=== PATIENT | female | born 1975 | race African-American/Black ===

== ENCOUNTER 2019-12-17 12:07 | Inpatient (IN) | payer OTHER ==
[~2019-12-17] VITALS: Ht 170.2 cm; Wt 88.0 kg
--- NOTE | 2019-12-17 12:25 | NUR ---
Patient BIBA BLS from [facility], transferred to bed 2. RN evaluating patient at bedside.
[2019-12-17 12:34] VITALS: BP 118/79
--- NOTE | 2019-12-17 12:40 | NUR ---
44 YR OLD TRACH F BIB [facility] FROM [facility] FOR LT AXILLARY ABSCESS PMH: CHRONIC RESPIRATORY FAILURE, TRACHEOSTOMY, G -TUBE, HEMIPGLEGIA, ENCEPHALOPAHTY, EPILEPSY, SACARAL PRESSURE ULCER BUTTOCK/LT HEEL
--- NOTE | 2019-12-17 13:33 | NUR ---
FERNANDO CHAMBERS TALK TO NURSING TRANSPORT AIDE AT [facility] FOR MORE INFORMATION
[2019-12-17 14:26] LABS: APPEARANCE,URINE CLEAR (CLEAR); BILIRUBIN,URINE NEGATIVE (NEGATIVE); BLOOD, URINE NEGATIVE (NEGATIVE); COLOR,URINE YELLOW (YELLOW); LEUKOCYTE ESTERASE ,URINE NEGATIVE (NEGATIVE); NITRITE, URINE NEGATIVE (NEGATIVE); PH,URINE 5.5 (5.0-9.0); UGLUCOSE NEGATIVE (NEGATIVE)
[2019-12-17 14:31] LABS: BASOPHILS % (AUTO) 0.2 % (0.0-2.0); EOSINOPHILS # (AUTO) 0.5 K/uL (0-0.4); LYMPHOCYTES # (AUTO) 1.4 K/uL (2.5-16.5); LYMPHOCYTES % (AUTO) 8.5 % (20.5-51.1); MEAN CORPUSCULAR HEMOGLOBIN 29 pg (27-31); MEAN CORPUSCULAR HGB CONC 32 g/dL (33-37); MEAN CORPUSCULAR VOLUME 89.3 fL (80-94); MONOCYTES # (AUTO) 1.4 K/uL (0.8-1.0); MONOCYTES % (AUTO) 8.4 % (1.7-9.3); NEUTROPHILS # (AUTO) 13.6 K/uL (1.8-7.7); NEUTROPHILS % (AUTO) 79.9 % (42.2-75.2); PLATELET COUNT (AUTO) 379 K/uL (140-450); RED BLOOD CELL COUNT(AUTO) 2.79 MIL/uL (4.20-5.40); RED CELL DISTRIBUTION WIDTH 16.2 % (11.6-13.7)
--- NOTE | 2019-12-17 14:35 | NUR ---
URINE SPECIMEN COLLECTED VIA STRAIGHT CATH DONE BY STUDENTS W/ INSTRUCTOR AT BEDSIDE. SPECIMEN SEND TO THE LAB INCLUDING LT AXILLARY WOUND CULTURE
[2019-12-17 14:43] LABS: PROTHROMBIN TIME 10.4 secs (10.8-13.4)
[2019-12-17 14:51] LABS: CARBON DIOXIDE 32.9 mmol/L (21-32); POTASSIUM 4.9 mmol/L (3.5-5.1)
[2019-12-17 14:52] LABS: CREATININE 0.8 mg/dL (0.6-1.3)
[2019-12-17 14:57] LABS: TOTAL BILIRUBIN 0.3 mg/dL (0.0-1.0)
[2019-12-17] MEDS ORDERED: PIPERACILLIN/TAZOBACTAM 4.5 GM in DEXTROSE 5% 100 ML IV ONE (15:00)
[2019-12-17] MEDS ORDERED: NACL 0.9% 1,000 ML IV ONE (15:00)
[2019-12-17 15:04] LABS: ALBUMIN 3.2 g/dL (3.4-5.0)
[2019-12-17] MEDS ORDERED: ONDANSETRON 4 MG/2 ML VIAL IVP PRN (15:35)
[2019-12-17] MEDS ORDERED: HYDROcodone/APAP 5/325 MG 1 TAB TAB PO PRN (15:35)
[2019-12-17] MEDS ORDERED: MORPHINE SULFATE 2 MG/ML SYR IVP PRN (15:35)
[2019-12-17] MEDS ORDERED: LORazepam 2 MG/ML VIAL IVP PRN (15:35)
[2019-12-17] MEDS ORDERED: MORPHINE SULFATE 4 MG/ML SYR IVP PRN (15:35)
[2019-12-17] MEDS ORDERED: VANCOMYCIN 1,000 MG VIAL ONE ×2 (15:53→16:04)
[2019-12-17] MEDS ORDERED: PIPERACILLIN/TAZOBACTAM 4.5 GM VIAL IV ONE (16:04)
--- NOTE | 2019-12-17 16:44 | NUR ---
Pt transferred to Tele via 124B WITH JOSE J ROBLES.
[2019-12-17 16:56] VITALS: BP 96/66
--- NOTE | 2019-12-17 16:56 | NUR ---
RECEIVED PT. FROM ER NURSE TIMOTHY. PT. AWAKE AND INTUBATED, ON 2L O2. BEDBOUND, FLACCID EXTREMITIES AND NONVERBAL. IV ON THE LEFT FOREARM ON KVO. VITAL SIGNS STABLE. CELLULITIS ON BILATERAL ARMPITS. GTUBE IN PLACE AND INTACT. CHRISTOPHER VALVE REPLACED ON GTUBE. NO SIGNS OF DISTRESS. WILL CONTINUE TO MONITOR.
--- NOTE | 2019-12-17 17:01 | NUR ---
Patient will be admitted to care of Dr Melchor. Admited to tele room 124b. Belongings list completed. Report to given to JOSE J Lindsey.
--- NOTE | 2019-12-17 17:15 | NUR ---
PT. CHANGED AND CLEANED. SKIN CHECKS DONE BY BOTH RN AND MEDICAL LAB TECH INSTRUCTOR. PT. TOLERATED WELL. WILL CONTINUE TO MONITOR.
[2019-12-17] MEDS: NACL 0.9% 1,000 ML IV SCH (17:30)
[2019-12-17] MEDS ORDERED: VANCOMYCIN 1,000 MG VIAL PO SCH (18:00)
--- NOTE | 2019-12-17 18:05 | NUR ---
SUCTIONED PT. AND PT. TOLERATED WELL. PT. NOT IN DISTRESS. WILL CONTINUE TO MONITOR.
--- NOTE | 2019-12-17 18:15 | NUR ---
MRSA AND INFLUENZA CULTURE OBTAINED ON BOTH NARES. PT. TOLERATED AND NOT IN DISTRESS. WILL CONTINUE TO MONITOR.
[2019-12-17] MEDS: IPRATROPIUM 0.02% 0.5 MG/2.5 ML NEBU INH SCH (19:03)
--- NOTE | 2019-12-17 19:05 | NUR ---
RECEIVED PT TRACH WITH PORTEX SIZE 7 AND SECURED WITH TRACH TIE. PT PLACED ON COOL AEROSOL 30% ON 6LMP WITH SP02 OF 94%. NO APPARENT RESPIRATORY DISTRESS NOTED AT THIS TIME. TRACH CARE DONE. BVM AT BEDSIDE. AIRWAY PATENT. WILL CONTINUE TO MONITOR PT.
--- NOTE | 2019-12-17 19:15 | NUR ---
ENDORSED PT AT BEDSIDE TO BEAM DYER OPERATOR NURSE FOR CONTINUITY OF CARE. PT AWAKE AND IN BED. NO SIGNS OF DISTRESS NOTED. TELE MONITOR ATTACHED. SAFETY MEASURES IN PLACE.
--- NOTE | 2019-12-17 19:16 | NUR ---
RECEIVED BEDSIDE REPORT FROM DAY SHIFT NURSE. PT. AWAKE AND T PIECE TRACH ON 2L O2. BEDBOUND, FLACCID EXTREMITIES AND NONVERBAL. IV ON THE LFA, 22G, PATENT, INTACT, AND ASYMPTOMATIC. GTUBE IN PLACE AND INTACT. NO SIGNS OF DISTRESS. BED IN LOW POSITION, CALL LIGHT WITHIN REACH. WILL CONTINUE TO MONITOR.
[2019-12-17 20:00] VITALS: BP 101/65
[2019-12-17] MEDS ORDERED: PIPERACILLIN/TAZOBACTAM 3.375 GM VIAL IV ONE (20:33)
[2019-12-17] MEDS ORDERED: DEXTROSE 5% IV SCH (21:00)
[2019-12-17] MEDS ORDERED: PIPERACILLIN IV SCH (21:00)
[2019-12-17] MEDS ORDERED: TAZOBACTAM IV SCH (21:00)
--- NOTE | 2019-12-17 21:05 | NUR ---
GIVEN ZOSYN MD ORDERED. PT TOLERATED WELL.
[2019-12-17] MEDS ORDERED: PIPERACILLIN/TAZOBACTAM 3.375 GM in DEXTROSE 5% 50 ML IV SCH (22:00)
--- NOTE | 2019-12-17 22:22 | NUR ---
PT HAD BM, CHANGED PT WITH FICTION WRITER, REMA.
[2019-12-18] VITALS (7 sets, daily range): BP systolic 100–154; BP diastolic 64–87
--- NOTE | 2019-12-18 00:05 | NUR ---
VS CHECKED, WITHIN PT'S BASELINE, WILL CONTINUE TO MONITOR.
--- NOTE | 2019-12-18 02:25 | NUR ---
PT SLEEPING IN BED COMFORTABLY. NO ACUTE DISTRESS NOTED.
[2019-12-18] MEDS: IPRATROPIUM 0.02% 0.5 MG/2.5 ML NEBU INH SCH ×4 (03:13→19:59)
[2019-12-18] MEDS: NACL 0.9% 1,000 ML IV SCH ×2 (03:16→17:25)
--- NOTE | 2019-12-18 04:08 | NUR ---
VS CHECKED, WITHIN PT'S BASELINE. WILL CONTINUE TO MONITOR.
[2019-12-18] MEDS ORDERED: PIPERACILLIN/TAZOBACTAM 3.375 GM VIAL IV ONE (05:01)
[2019-12-18] MEDS: PIPERACILLIN/TAZOBACTAM 3.375 GM in DEXTROSE 5% 50 ML IV SCH ×3 (05:05→17:53)
--- NOTE | 2019-12-18 05:06 | NUR ---
GIVEN ZOSYN MD ORDERED. PT TOLERATED WELL. WILL CONTINUE TO MONITOR.
--- NOTE | 2019-12-18 05:47 | NUR ---
PT SLEEPING IN BED COMFORTABLY. NO ACUTE DISTRESS NOTED. BED IN LOW POSITION.
[2019-12-18] MEDS ORDERED: CRUSHER, PILL MC ONE (07:39)
[2019-12-18 10:53] LABS: ANION GAP 11.2 (8-16); BASOPHILS % (AUTO) 0.3 % (0.0-2.0); CARBON DIOXIDE 31.2 mmol/L (21-32); CREATININE 0.7 mg/dL (0.6-1.3); EOSINOPHILS # (AUTO) 0.6 K/uL (0-0.4); EOSINOPHILS % (AUTO) 4.2 % (0.0-4.0); HEMATOCRIT 24.4 % (36-48); HEMOGLOBIN 7.9 g/dL (12.0-16.0); LYMPHOCYTES # (AUTO) 1.5 K/uL (2.5-16.5); LYMPHOCYTES % (AUTO) 10.8 % (20.5-51.1); MEAN CORPUSCULAR HEMOGLOBIN 29 pg (27-31); MEAN CORPUSCULAR HGB CONC 32 g/dL (33-37); MEAN CORPUSCULAR VOLUME 89.3 fL (80-94); MONOCYTES % (AUTO) 7.2 % (1.7-9.3); NEUTROPHILS # (AUTO) 10.9 K/uL (1.8-7.7); NEUTROPHILS % (AUTO) 77.5 % (42.2-75.2); PLATELET COUNT (AUTO) 341 K/uL (140-450); POTASSIUM 4.4 mmol/L (3.5-5.1); RED BLOOD CELL COUNT(AUTO) 2.73 MIL/uL (4.20-5.40); RED CELL DISTRIBUTION WIDTH 16.3 % (11.6-13.7); TOTAL BILIRUBIN 0.3 mg/dL (0.0-1.0)
--- NOTE | 2019-12-18 11:00 | NUR ---
MEDITECH SYSTEM DOWN AND NURSES NOTES ARE ON HARD COPY CHART, PT IS STABLE, PT IS ON 2LITER OXYGEN, WILL CONTINUE TO MONITOR.
--- NOTE | 2019-12-18 11:46 | NUR ---
Beading Machine Operator Note: Basic Screen: Yes High Risk DC Screen [place]: SARBJIT Coronel Relationship: MOTHER Pre-Admission Living Arrangements: SNF Prior ADL Total/Dependent Current Home Health Name/Tel: N/A Current DME/02 Name/Tel: BEDBOUND Current Hospice Name/Tel: N/A Current Dialysis Name/Tel: N/A Healthcare Decision Maker: Next of Kin Advance Directive No Physician Orders for Life Sustaining Treatment Form No Discipline: Case Mgt/Social Svcs Tentative Discharge Plan/Destination: SNF/ECF Will require assistance post discharge: No Referred to Bowl Attendant: No Tentative Discharge Plan Summary: Patient is a 44-year-old female admitted for cellulitis/pneumonia. Patient has PMHX of trach, flaccid, paralysis, nonverbal, respiratory failure, g-tube, and hemiplegia. Patient was admitted from [facility]. SW contacted Thao who stated that patient is prison and currently on a bed hold. Per Thao, patient is non-ambulatory and is not alert/oriented at baseline. Tentative discharge plan is for patient to return to [facility]. No further needs identified. Signature: ROCÍO Uribe Date: Dec 18, 2019 Time: 11:41
--- NOTE | 2019-12-18 13:00 | NUR ---
SUCTIONED PT, PT HAS MODERATE AMOUNT OF THIN SECRETIONS, PT REQUIRES ORALLY SUCTIONING, PT IS STABLE, TOLERATING G-TUBE FEEDING, WILL CONTINUE TO MONITOR.
--- NOTE | 2019-12-18 14:42 | NUR ---
12/18/19 RD INITIAL ASSESSMENT COMPLETED PLEASE REFER TO NUTRITION ASSESSMENT UNDER CARE ACTIVITY FOR ESTIMATED NUTRITIONAL NEEDS. 1. RECOMMEND JEVITY 1.2 @ 65 ML/HR & 1 PROSOURCE -THIS WILL PROVIDE 1932 KCALS AND 102 GMS OF PROTEIN. THIS IS MEETING 91% OF PTS KCAL NEEDS AND 95% OF PTS PRO NEEDS. 2. FREE WATER FLUSH OF [address] TO FOLLOW-UP 2-3 DAYS, HIGH RISK SUKHJINDER FLORES [address]
--- NOTE | 2019-12-18 15:22 | NUR ---
PATIENT HAS BEEN SCREENED AND CATEGORIZED HIGH NUTRITION RISK. PATIENT WILL BE SEEN WITHIN 1-2 DAYS OF ADMISSION. 12/18/19-12/19/[address]
--- NOTE | 2019-12-18 16:23 | NUR ---
DC PLANNIN YRS OLD FEMALE PATIENT WAS AD[place] [facility] [place] DX OF CELLULITIS VS PNA PT HAS A HX OF ANOXIC BRAIN INJURY ,HAS G-TUBE ,TRACHEOSTOMY. PT HAS A WOUND ON AXILLARY ABSCESS AND LEUKOCYTOSIS . CXRAY SHOWED PNEUMONIA . ADMINISTER VANCO AND ZOSYN , BLOOD ,URINE AND WOUND CULTURE PENDING. CONSULTED WITH DR JOSE BOWDEN AND DR RODRIGUEZ SURGEON. DC PLAN TO GO BACK [place] [facility] WHEN STABLE CM TO FOLLOW. Addendum: 12/19/19 at 1145 by Kaylah Gilliland CM DC PLANNING: PER RT NOTED PT IS PLACED ON TRACH TO VENT. WBC INCREASED 19.5 ,SEEN BY DR JOSE COFFEY IV X DREW, CM TO FOLLOW Addendum: 12/20/19 at 1102 by Kaylah Gilliland CM DC PLANNING: FOR INDIUM SCAN CAN NOT BE DONE AT [facility] BECAUSE OF THE SMALL CAMERA WE HAVE AND THE SCAN TAKES 2 DAYS AND [place]NA[place] [facility] [place] [facility] SPOKE WITH RENATO THE CM STATED PT CAN BE TRANSFERED TO [facility] CONTRACTED FACILITY . CALLED DR PATEL STATED HOLD THE TRANSFER NOW AND HE WILL TALK TO DR JOSE BOWDEN AND WILL DECIDE. CM TO FOLLOW Addendum: 12/21/19 at 1610 by Kaylah Gilliland CM DC PLANNING: PT HAS A DC ORDER TO GO BACK [place] [facility] , FAXED ALL THE PAPER WORK [place] [facility] , SPOKE WITH MIRIAM REVIEWING THE PAPER AND WILL CALL BACK FOR THE BED NUMBER. CALLED RENATO AT [facility] PROVIDE THE AUTH FOR TRANSPORTATION [id number] ARRANGED TRANSPORT WITH [facility] PL[facility] IT WILL CALL NOTIFIED NEMA CHARGE NURSE Addendum: 12/21/19 at 1645 by Kaylah Gilliland CM DC PLANING RECEIVED A CALL FROM CLIFT[facility] AT [facility] [place] IS [place] ISO BED , WILL CALL BACK WHEN THEY HAVE ISO BED CHARGE NURSE TO FOLLOW AT NIGHT Addendum: 12/24/19 at 1446 by Kaylah Gilliland CM DC PLANNING: CALLED [facility] SPOKE WITH MIRIAM STILL NO ISO BED AVAILABLE. CLARIFIED WITH MIRIAM THAT PT IS 7 DAY BED HOLD AND THE 7 DAY IS OVER. PER MIRIAM SHE IS ONE OF CORRECTIONAL SUPERVISOR PATIENT AND WILL TAKE HER BACK ONCE THEY HAVE AN ISO BED. CALLED [facility] SPOKE WITH RENATO NOTIFIED HER THAT [facility] IF [facility] TO D/C PT TO [facility] FAXED TO [facility] CM TO FOLLOW. Addendum: 12/25/19 at 1100 by Kaylah Gilliland CM DC PLANNING CALLED [facility] [phone] SPOKE WITH [place], PT CAN GO TO ROOM 27B ARRANGED TRANSPORT WITH [facility] BLS PROVIDED THE AUTH NUMBER GAUGE MAKER APPRENTICE TIME 2 PM NOTIFIED HARISH GAINES RN
--- NOTE | 2019-12-18 17:15 | NUR ---
GAVE PT TYLENOL FOR FEVER OF 102 AND ICE PACKS TO THE AXILLAS, NO COVERS ON THE PT, COOLING MEASURES IN PLACE.
[2019-12-18] MEDS: ACETAMINOPHEN 325 MG TAB PO PRN ×2 (17:25→22:36)
--- NOTE | 2019-12-18 18:15 | NUR ---
RE-CHECKED PT TEMPERATURE 103, CALLED DR PATEL OFFICE AND LEFT A MESSAGE FOR A CALL BACK. COOLING MEASURES IN PLACE FOR THE PT, WILL CONTINUE TO MONITOR PT.
--- NOTE | 2019-12-18 19:15 | NUR ---
GAVE REPORT TO NIGHT NURSE FOR CONTINUITY OF CARE.
--- NOTE | 2019-12-18 19:16 | NUR ---
RECEIVED BEDSIDE REPORT FROM AM SHIFT NURSE. PATIENT HAS INCREASED WORK OF BREATHING WITH COPIOUS AMOUNT OF SECRETIONS. TRACH TO T-PIECE ON 12LPM OXYGEN. RT NOTIFIED AT THIS TIME. IV ACCESS ON LEFT FOREARM 22 GAUGE, PATENT, INTACT AND INFUSING WELL. G-TUBE IN PLACE, PATENT AND INTACT WITH ONGOING FEEDING. COOLING MEASURES IN PLACE. BED IN LOW, SAFETY MEASURES IN PLACE. CALL LIGHT WITHIN PATIENT REACH. BOARD UPDATED. WILL CONTINUE TO MONITOR PATIENT.
--- NOTE | 2019-12-18 20:05 | NUR ---
PT HAS INCREASED WORK OF BREATHING. PAGENikolas SILVER
--- NOTE | 2019-12-18 20:19 | NUR ---
MD SILVER CALLED BACK AND GAVE VERBAL ORDER TO PLACE PT ON VENT WITH SETTINGS AC 14,400,+5,100% AND TITRATE FIO2 TO KEEP SPO2 92 AND ABOVE. ORDER HAS BEEN READ BACK AND CONFIRMED.
--- NOTE | 2019-12-18 20:30 | NUR ---
PT PLACED ON VENTILATOR WITH CHARTED SETTINGS. RN TR AWARE AND IN ROOM. CHARGE NURSE GEN AWARE WELL. VENT IS CONNECTED TO RED OUTLET. ALARMS AUDIBLE. AMBU BAG AT BEDSIDE. WILL CONTINUE TO MONITOR.
--- NOTE | 2019-12-18 20:45 | NUR ---
PRN ATIVAN GIVEN AT THIS TIME PER RT REQUEST. PATIENT HAD ANXIETY DUE TO VENT. WILL CONTINUE TO MONITOR PATIENT.
--- NOTE | 2019-12-18 22:36 | NUR ---
PATIENT CHANGED DUE TO VOIDING. PATIENT VERY WARM TO TOUCH. TEMPERATURE CHECKED ORALLY WITH TEMP OF 103.1. COOLING MEASURES RENDERED AND PRN TYLENOL ADMINISTERED.
--- NOTE | 2019-12-18 23:50 | NUR ---
TEMP RECHECKED. PATIENT TEMP STILL AT 103.1 ORALLY. PRN ACETAMINOPHEN SUPPOSITORY ADMINISTERED AND COOLING MEASURES CHANGED. WILL CONTINUE TO MONITOR PATIENT.
[2019-12-18] MEDS: ACETAMINOPHEN 650 MG SUPP RC PRN (23:57)
[2019-12-19] VITALS (9 sets, daily range): BP systolic 109–138; BP diastolic 77–97
[2019-12-19] MEDS: PIPERACILLIN/TAZOBACTAM 3.375 GM in DEXTROSE 5% 50 ML IV SCH ×5 (00:23→23:21)
[2019-12-19] MEDS: IPRATROPIUM 0.02% 0.5 MG/2.5 ML NEBU INH SCH ×4 (00:49→18:56)
--- NOTE | 2019-12-19 01:00 | NUR ---
TEMPERATURE REASSESSED AT THIS TIME. PATIENT NOTED WITH ORAL TEMP OF 101.8. COOLING MEASURES STILL IN PLACE. WILL CONTINUE TO MONITOR PATIENT.
--- NOTE | 2019-12-19 02:12 | NUR ---
PATIENT IS TOLERATING VENT WELL. MODERATE AMOUNT OF SECRETIONS SUCTIONED AT THIS TIME. NO DISTRESS NOTED. WILL CONTINUE TO MONITOR PATIENT.
[2019-12-19] MEDS: ACETAMINOPHEN 325 MG TAB PO PRN (02:47)
--- NOTE | 2019-12-19 02:51 | NUR ---
PRN ACETAMINOPHEN GIVEN FOR ORAL TEMP OF 101.9. COOLING MEASURES STILL IN PLACE. WILL CONTINUE TO MONITOR PATIENT.
--- NOTE | 2019-12-19 04:14 | NUR ---
REASSESSED PATIENT WITH ORAL TEMPERATURE OF 100.4. COOLING MEASURES STILL IN PLACE. WILL CONTINUE TO MONITOR PATIENT.
--- NOTE | 2019-12-19 05:20 | NUR ---
PATIENT TEMP REASSESSED WITH TEMP OF 99.9. COOLING MEASURES REPLACED. WILL CONTINUE TO MONITOR PATIENT.
[2019-12-19 06:01] LABS: HEMATOCRIT 24.9 % (36-48); HEMOGLOBIN 7.9 g/dL (12.0-16.0); MEAN CORPUSCULAR HEMOGLOBIN 28 pg (27-31); MEAN CORPUSCULAR HGB CONC 32 g/dL (33-37); MEAN CORPUSCULAR VOLUME 88.7 fL (80-94); PLATELET COUNT (AUTO) 356 K/uL (140-450); RED BLOOD CELL COUNT(AUTO) 2.81 MIL/uL (4.20-5.40); RED CELL DISTRIBUTION WIDTH 15.8 % (11.6-13.7)
--- NOTE | 2019-12-19 06:10 | NUR ---
PATIENT NOTED WITH HIGH BLOOD PRESSURE OF 157/108 . BP RECHECKED ON BOTH ARMS. PATIENT HAS HIGH HEART RATE OF 110 WITH RR OF 26. PATIENT IS CRYING AND MOANING. PRN MORPHINE GIVEN AT THIS TIME FOR SEVERE PAIN.
[2019-12-19 06:28] LABS: ANION GAP 13.6 (8-16); CARBON DIOXIDE 28.7 mmol/L (21-32); CREATININE 0.7 mg/dL (0.6-1.3); POTASSIUM 4.3 mmol/L (3.5-5.1); TOTAL BILIRUBIN 0.4 mg/dL (0.0-1.0)
--- NOTE | 2019-12-19 06:39 | NUR ---
PATIENT IN STABLE CONDITION. ORAL TEMPERATURE OF 98.3. CALL LIGHT PLACED WITHIN PATIENT REACH. WILL ENDORSE TO AM SHIFT NURSE FOR CONTINUITY OF CARE.
[2019-12-19 06:51] LABS: WHITE BLOOD COUNT (AUTO) 19.5 K/uL (4.8-10.8)
[2019-12-19 06:59] LABS: LYMPHOCYTES % (MANUAL) 9 % (20-46); MONOCYTES % (MANUAL) 4 % (5-12)
--- NOTE | 2019-12-19 07:13 | NUR ---
RECEIVE REPORT FROM NIGHT NURSE, PT ON VENT, PT IS STABLE, LFA 22G RUNNING NORMAL SALINE AT 75 ML, G-TUBE IN PLACE RUNNING JEVITY AT 65ML/H WITH WATER FLUSH OF 105ML/H Q4H, COOLING MEASURES IN PLACE, SAFETY MEASURES IN PLACE, UPDATED WHITEBOARD, WILL CONTINUE TO MONITOR.
--- NOTE | 2019-12-19 07:15 | NUR ---
rec'd pt on carescape vent settings ac 16 vt 400 peep 5 fio2 30% alarms on and audible and ambu bag at hob and vent is plugged into red outlet, i\l tx given with atrovent 0.5mg with no adverser reaction post tx b\s are coarse bilaterally, sxn pt small amt of yellow secretions, pt is trach with portex 7 and pt is sleeping
[2019-12-19] MEDS: ACETAMINOPHEN 650 MG SUPP RC PRN (08:03)
--- NOTE | 2019-12-19 08:03 | NUR ---
GAVE PT TYLENOL SUPPOSITORY FOR TEMP OF 100.0, COOLING MEASURES IN PLACE, PT EDUCATION GIVEN, PT TOLERATED WELL, PT IS STABLE ON VENTILATOR, SAFETY MEASURES IN PLACE, CALL LIGHT WITHIN REACH.
[2019-12-19] MEDS: NACL 0.9% 1,000 ML IV SCH ×3 (08:04→23:22)
--- NOTE | 2019-12-19 09:10 | NUR ---
SCREEN FOR LOW LORETTA SCALE AT RISK, CONTINUE TO FOLLOW PRESSURE ULCER PREVENTION INTERVENTIONS. -TURN AND REPOSITION PATIENT Q 2H -ASSESS AND MONITOR SKIN CONDITION DURING POSITION CHANGE -OFFLOAD BILATERAL HEELS BY PLACING PILLOWS UNDER CALVES AT ALL TIMES, UNLESS OTHERWISE CONTRAINDICATED -PRESSURE REDISTRIBUTION BY PLACING PILLOWS AND OFFLOADING SACRALCOCCYX -KEEP SKIN CLEAN AND DRY AT ALL TIMES.
--- NOTE | 2019-12-19 11:00 | NUR ---
SUCTIONED PT OF MODERATE YELLOW SUCTION PT TOLERATED WELL, PT ON VENTILATOR, PT IS STABLE, SAFETY MEASURES IN PLACE WILL CONTINUE TO MONITOR.
--- NOTE | 2019-12-19 12:19 | NUR ---
ADMINISTERED PT ORDERED MEDICATION, PT TOLERATED WELL, PT IS STABLE, SAFETY MEASURES IN PLACE.
[2019-12-19] MEDS ORDERED: hydrALAZINE 10 MG TAB GT PRN (15:00)
--- NOTE | 2019-12-19 15:34 | NUR ---
PT RESTING IN BED, NO SIGNS OF DISTRESS NOTED, WILL CONTINUE TO MONITOR.
--- NOTE | 2019-12-19 18:58 | NUR ---
RECEIVED PT FROM DAY SHIFT ON AC 16,400,+5,30%. VENT PLUGGED INTO RED OUTLET. BMV AT BEDSIDE. ALARMS AUDIBLE AT WORKING. TRACH IS SECURED AND INTACT. PT RECEVEIVED ATROVENT. SX WHITE SECRETION ORALLY. WILL CONT. TO MONITOR
--- NOTE | 2019-12-19 19:16 | NUR ---
PT IS STABLE, GAVE REPORT TO NIGHT NURSE FOR CONTINUITY OF CARE
--- NOTE | 2019-12-19 19:18 | NUR ---
RECEIVED BEDSIDE REPORT FROM AM SHIFT NURSE. PATIENT IS LYING IN BED, AWAKE. PATIENT IS ON TRACH TO MECHANICAL VENTILATOR. NO DISTRESS NOTED. IV ACCESS ON LEFT FOREARM 22 GAUGE. PATENT, INTACT AND INFUSING WELL. G-TUBE IN PLACE, PATENT AND INTACT WITH ON GOING FEEDING. SKIN IS INTACT. HEEL PROTECTORS NOTED ON BOTH HEELS. PATIENT IS NOTED WITH COOLING MEASURES IN PLACE. BED IN LOW, SAFETY MEASURES IN PLACE. INITIAL ASSESSMENT DONE. BOARD UPDATED. CALL LIGHT PLACED WITHIN PATIENT REACH. WILL CONTINUE TO MONITOR PATIENT.
--- NOTE | 2019-12-19 19:20 | NUR ---
CALLED [facility] AT [phone] TO FOLLOW UP ON PT'S NUCLEAR MEDICINE WBC STUDY, LEFT A MESSAGE FOR RADIOLOGY TO CALL [facility] REGARDING THE POSSIBLITY OF CONDUCTING THE STUDY AT [facility].
[2019-12-19] MEDS: LABETALOL 200 MG TAB GT SCH (20:47)
[2019-12-19] MEDS: SENNA 8.6 MG TAB GT SCH (20:47)
[2019-12-19] MEDS: FAMOTIDINE 20 MG TAB GT SCH (20:47)
[2019-12-19] MEDS: levETIRAcetam 100 MG/ML ORASYR GT SCH (20:48)
--- NOTE | 2019-12-19 22:15 | NUR ---
ROUNDS DONE. VISIBLE CHEST RISE AND FALL NOTED. MOUTH SUCTIONED WITH MODERATE AMOUNT OF CLEAR SECRETIONS. WILL CONTINUE TO MONITOR PATIENT.
[2019-12-20] VITALS (7 sets, daily range): BP systolic 100–123; BP diastolic 66–89
--- NOTE | 2019-12-20 00:15 | NUR ---
VITALS TAKEN AT THIS TIME. NO SOB OR DISTRESS NOTED. PATIENT TOLERATING VENT WELL. MOUTH SUCTIONED AND CLEANED WITH CLEAR SECRETIONS. WILL CONTINUE TO MONITOR PATIENT.
[2019-12-20] MEDS: IPRATROPIUM 0.02% 0.5 MG/2.5 ML NEBU INH SCH ×4 (01:10→19:21)
--- NOTE | 2019-12-20 01:22 | NUR ---
DUE MEDICATION PER DR ORDER ADMINISTERED, PT TOLERATED WELL, NO DISTRESS NOTED, CALL LIGHT WITHIN REACH, WILL CONTINUE TO MONITOR. Addendum: 12/21/19 at 0248 by Jessica Bhatt RN WRONG DATE
--- NOTE | 2019-12-20 02:29 | NUR ---
ROUNDS DONE. PATIENT SUCTIONED AT THIS TIME. NO DISTRESS NOTED. WILL CONTINUE TO MONITOR PATIENT.
--- NOTE | 2019-12-20 04:30 | NUR ---
VITALS TAKEN AT THIS TIME. NO SOB OR DISTRESS NOTED. PATIENT SUCTIONED AT THIS TIME WITH MODERATE AMOUNTS OF CLEAR SECRETIONS. WILL CONTINUE TO MONITOR PATIENT.
--- NOTE | 2019-12-20 04:55 | NUR ---
pt remains on documented setting. vent plugged into red outlet. bmv at bedside. alarms audible and working. will cont to monitor
[2019-12-20] MEDS: PIPERACILLIN/TAZOBACTAM 3.375 GM in DEXTROSE 5% 50 ML IV SCH ×3 (05:13→20:33)
--- NOTE | 2019-12-20 05:18 | NUR ---
CONTINUOUS FEEDING, WATER AND FEEDING TUBES CHANGED AT THIS TIME. PATIENT TOLERATING FEEDING WELL.
--- NOTE | 2019-12-20 06:42 | NUR ---
PATIENT IN STABLE CONDITION. CALL LIGHT WITHIN PATIENT REACH. WILL ENDORSE TO AM SHIFT NURSE FOR CONTINUITY OF CARE.
[2019-12-20 06:54] LABS: BASOPHILS % (AUTO) 0.2 % (0.0-2.0); EOSINOPHILS # (AUTO) 0.5 K/uL (0-0.4); EOSINOPHILS % (AUTO) 2.9 % (0.0-4.0); LYMPHOCYTES # (AUTO) 1.2 K/uL (2.5-16.5); LYMPHOCYTES % (AUTO) 7.4 % (20.5-51.1); MEAN CORPUSCULAR HEMOGLOBIN 29 pg (27-31); MEAN CORPUSCULAR HGB CONC 32 g/dL (33-37); MEAN CORPUSCULAR VOLUME 89.4 fL (80-94); MONOCYTES # (AUTO) 0.8 K/uL (0.8-1.0); MONOCYTES % (AUTO) 5.4 % (1.7-9.3); NEUTROPHILS # (AUTO) 13.1 K/uL (1.8-7.7); NEUTROPHILS % (AUTO) 84.1 % (42.2-75.2); PLATELET COUNT (AUTO) 330 K/uL (140-450); RED BLOOD CELL COUNT(AUTO) 2.46 MIL/uL (4.20-5.40); RED CELL DISTRIBUTION WIDTH 15.8 % (11.6-13.7); WHITE BLOOD COUNT (AUTO) 15.6 K/uL (4.8-10.8)
--- NOTE | 2019-12-20 07:00 | NUR ---
LATE ENTRY RECIVED PT ON VENT WITH SETTINGS CHARTED BREATH SOUNDS PRESENT BILAT DIMINISHED TRACH SITE SECURE VENT PLUGGED INTO RED OUTLET
--- NOTE | 2019-12-20 07:01 | NUR ---
RECEIVED REPORT FROM NIGHT NURSE, PT IS STABLE, TRACHED TO VENT, PT ASLEEP, PT HAS LFA 22G RUNNING NS AT 75 ML, UPDATE WHITE BOARD, SAFETY MEASURES IN PLACE, WILL CONTINUE TO MONITOR.
[2019-12-20 07:19] LABS: ALBUMIN 2.8 g/dL (3.4-5.0); ANION GAP 10.6 (8-16); CARBON DIOXIDE 29.8 mmol/L (21-32); CREATININE 0.6 mg/dL (0.6-1.3); POTASSIUM 4.4 mmol/L (3.5-5.1); TOTAL BILIRUBIN 0.2 mg/dL (0.0-1.0)
--- NOTE | 2019-12-20 08:58 | NUR ---
SPOKE WITH NUCLEAR MEDICINE. WE ARE UNABLE TO DO INDIUM SCAN AT THIS FACILITY WILL HAVE TO TRANSFER PT TO [place] FOR THE SCAN. WILL COORDINATE WITH CLOTHING ROOM SUPERVISOR TO ARRANGE TRANSPORTATION
[2019-12-20] MEDS ORDERED: MULTIVITAMIN/MINERALS 15 ML UDBTL GT SCH (09:00)
[2019-12-20] MEDS: LABETALOL 200 MG TAB GT SCH ×2 (09:00→20:40)
--- NOTE | 2019-12-20 09:07 | NUR ---
LEFT 2 MESSAGES TO PT MOTHER REQUESTING A CALL BACK, PT NEEDS CONSENT FORM SIGNED FOR BLOOD TRANSFUSION. WILL CONTACT DR PATEL OF INABILITY TO REACH PT PIT HAND.
[2019-12-20] MEDS: ASCORBIC ACID 500 MG/5 ML ORASYR GT SCH (09:27)
[2019-12-20] MEDS: MULTIVITAMIN/MINERALS 1 TAB GT SCH (09:28)
--- NOTE | 2019-12-20 09:28 | NUR ---
DR PATEL CALLED BACK, INFORMED DR PATEL PT'S MOTHER UNREACHABLE BY PHONE FOR BLOOD TRANSFUSION CONSENT, PT REQUIRES 2 MD SIGNATURE TO GET BLOOD TRANSFUSION, DR PATEL SAID IT WAS NOT AN EMERGENCY AND TO REPEAT CBC AT 10:30. WILL PUT ORDERS IN AND WILL CONTINUE TO MONITOR PT, PT IS CURRENTLY STABLE.
[2019-12-20] MEDS: levETIRAcetam 100 MG/ML ORASYR GT SCH ×2 (09:29→20:40)
[2019-12-20] MEDS: FAMOTIDINE 20 MG TAB GT SCH ×2 (09:29→20:41)
--- NOTE | 2019-12-20 09:36 | NUR ---
GAVE ORDERED MEDICATIONS THROUGH G-TUBE, EDUCATION GIVEN, PT TOLERATED WELL, PT RESTING IN BED, SO SIGNS OF DISTRESS NOTED, PT TRACHED TO VENTILATOR, WILL CONTINUE TO MONITOR.
--- NOTE | 2019-12-20 11:22 | NUR ---
PT RESTING IN BED, TRACHED TO VENT, PT IS STABLE, WILL CONTINUE TO MONITOR.
[2019-12-20 12:29] LABS: BASOPHILS % (AUTO) 0.2 % (0.0-2.0); EOSINOPHILS # (AUTO) 0.5 K/uL (0-0.4); EOSINOPHILS % (AUTO) 3.1 % (0.0-4.0); HEMATOCRIT 22.4 % (36-48); HEMOGLOBIN 7.2 g/dL (12.0-16.0); LYMPHOCYTES # (AUTO) 1.2 K/uL (2.5-16.5); LYMPHOCYTES % (AUTO) 7.6 % (20.5-51.1); MEAN CORPUSCULAR HEMOGLOBIN 29 pg (27-31); MEAN CORPUSCULAR HGB CONC 32 g/dL (33-37); MEAN CORPUSCULAR VOLUME 90.9 fL (80-94); MONOCYTES # (AUTO) 0.7 K/uL (0.8-1.0); MONOCYTES % (AUTO) 4.2 % (1.7-9.3); NEUTROPHILS # (AUTO) 13.6 K/uL (1.8-7.7); NEUTROPHILS % (AUTO) 84.9 % (42.2-75.2); PLATELET COUNT (AUTO) 350 K/uL (140-450); RED BLOOD CELL COUNT(AUTO) 2.47 MIL/uL (4.20-5.40); WHITE BLOOD COUNT (AUTO) 16.1 K/uL (4.8-10.8)
[2019-12-20] MEDS: MUPIROCIN CA NASAL 2% 1GM TUBE NS SCH (12:35)
[2019-12-20] MEDS: CHLORHEXADINE GLUC 2% CLOTH TP SCH (12:38)
--- NOTE | 2019-12-20 13:16 | NUR ---
12/20/19 RD FOLLOW UP COMPLETED PLEASE REFER TO NUTRITION ASSESSMENT UNDER CARE ACTIVITY FOR ESTIMATED NUTRITIONAL NEEDS. 1. CONTINUE JEVITY 1.2 @ 65 ML/HR & 1 PROSOURCE -THIS WILL PROVIDE 1932 KCAL AND 102 GMS OF PROTEIN. THIS IS MEETING 91% OF PTS KCAL NEEDS AND 95% OF PTS PRO NEEDS 2. CONTINUE FREE WATER FLUSH OF [address] TO FOLLOW-UP 2-3 DAYS, HIGH RISK SUKHJINDER FLORES RD
--- NOTE | 2019-12-20 14:16 | NUR ---
PT IS STABLE IN BED, NO SIGNS OF DISTRESS NOTED, PT IS RESTING, WILL CONTINUE TO MONITOR.
--- NOTE | 2019-12-20 16:24 | NUR ---
STARTED PT BLOOD TRANSFUSION, PT IS STABLE, NO SIGNS OF DISTRESS NOTED, WILL CONTINUE TO MONITOR.
--- NOTE | 2019-12-20 16:39 | NUR ---
RE-ASSESS PT'S VITAL SIGNS, TEMP 98.5, PULSE 83, RR 20, BP 156/90. THERE WAS AN INCREASE IN BLOOD PRESSURES FROM THE PRE-INFUSION VITALS OF BLOOD PRESSURE 111/77. STOPPED INFUSION AND NOTIFIED DR. SILVER ABOUT THE CHANGES, DR SILVER SAID TO CONTINUE WITH THE INFUSION, RE-STARTED THE INFUSION.
--- NOTE | 2019-12-20 17:57 | NUR ---
CONTINUED TO MONITOR PT ON VENT WIRH SETTINGS CHARTED BREATH SOUNDS PRESENT BILAT SXN PT WITH MIN TO MOD AMT OFF OFF WHITE SECS TRACH SITE SECURE AMBU BAG AT BEDSIDE VENT PLUGGED INTO RED OUTLET
[2019-12-20] MEDS: ALBUTEROL 0.083% 2.5 MG/3 ML NEBU INH PRN (19:21)
--- NOTE | 2019-12-20 19:25 | NUR ---
PT STABLE, BLOOD TRANSFUSION STILL INFUSING, GAVE REPORT TO NIGHT NURSE FOR CONTINUITY OF CARE.
--- NOTE | 2019-12-20 19:26 | NUR ---
RECEIVED BEDSIDE REPORT FROM DAY SHIFT NURSE ELIZABETH RN, PT STABLE, NO DISTRESS NOTED, IV TO L FA 22G PATENT INTACT, INFUSING BLOOD AT THIS MOMENT, PT ON TRACH TO VENT, NO SOB NOTED, G TUBE FEEDING IN PLACE, RESIDUAL 40ML, INITIAL ASSESSMENT DONE, ALL SAFETY PRECAUTION MET, CALL LIGHT WITHIN REACH, WILL CONTINUE TO MONITOR.
--- NOTE | 2019-12-20 20:00 | NUR ---
BLOOD TRANSFUSION COMPLETED, PT TOLERATED WELL, NO DISTRESS NOTED, CALL LIGHT WITHIN REACH, WILL CONTINUE TO MONITOR.
[2019-12-20] MEDS: SENNA 8.6 MG TAB GT SCH (20:40)
--- NOTE | 2019-12-20 20:44 | NUR ---
DUE MEDICATION GIVEN PER MD ORDER, PT TOLERATED WELL, NO DISTRESS NOTED, CALL LIGHT WITHIN REACH, WILL CONTINUE TO MONITOR.
--- NOTE | 2019-12-20 23:50 | NUR ---
PT SLEEPING, NO DISTRESS NOTED, CALL LIGHT WITHIN REACH, WILL CONTINUE TO MONITOR.
[2019-12-21] VITALS: BP 116/84
[2019-12-21] MEDS: ALBUTEROL 0.083% 2.5 MG/3 ML NEBU INH PRN (00:59)
[2019-12-21] MEDS: IPRATROPIUM 0.02% 0.5 MG/2.5 ML NEBU INH SCH ×4 (00:59→19:41)
[2019-12-21] MEDS: NACL 0.9% 1,000 ML IV SCH ×2 (01:22→12:04)
[2019-12-21] MEDS: LEVOFLOXACIN 750 MG/D5W PREMIX 150 ML IV SCH (01:22)
--- NOTE | 2019-12-21 01:22 | NUR ---
DUE MEDICATION PER DR ORDER ADMINISTERED, PT TOLERATED WELL, NO DISTRESS NOTED, CALL LIGHT WITHIN REACH, WILL CONTINUE TO MONITOR.
--- NOTE | 2019-12-21 03:11 | NUR ---
TUBE FEEDINGS CHANGED, PT TOLERATING FEEDING WELL, RESIDUAL 5ML, CALL LIGHT WITHIN REACH, WILL CONTINUE TO MONITOR.
[2019-12-21 04:00] VITALS: BP 128/96
--- NOTE | 2019-12-21 04:18 | NUR ---
PT RESTING, V/S TAKEN, WNL, CALL LIGHT WITHIN REACH, WILL CONTINUE TO MONITOR.
[2019-12-21 06:25] LABS: BASOPHILS % (AUTO) 0.3 % (0.0-2.0); EOSINOPHILS # (AUTO) 0.4 K/uL (0-0.4); HEMATOCRIT 25.2 % (36-48); HEMOGLOBIN 8.1 g/dL (12.0-16.0); LYMPHOCYTES # (AUTO) 1.4 K/uL (2.5-16.5); LYMPHOCYTES % (AUTO) 10.3 % (20.5-51.1); MEAN CORPUSCULAR HEMOGLOBIN 29 pg (27-31); MEAN CORPUSCULAR HGB CONC 32 g/dL (33-37); MEAN CORPUSCULAR VOLUME 91.2 fL (80-94); MONOCYTES # (AUTO) 0.7 K/uL (0.8-1.0); MONOCYTES % (AUTO) 4.6 % (1.7-9.3); NEUTROPHILS # (AUTO) 11.5 K/uL (1.8-7.7); NEUTROPHILS % (AUTO) 81.8 % (42.2-75.2); PLATELET COUNT (AUTO) 377 K/uL (140-450); RED BLOOD CELL COUNT(AUTO) 2.77 MIL/uL (4.20-5.40); RED CELL DISTRIBUTION WIDTH 15.6 % (11.6-13.7); WHITE BLOOD COUNT (AUTO) 14.1 K/uL (4.8-10.8)
[2019-12-21 07:08] LABS: ALBUMIN 2.8 g/dL (3.4-5.0); ANION GAP 15.2 (8-16); CARBON DIOXIDE 28.7 mmol/L (21-32); CREATININE 0.6 mg/dL (0.6-1.3); POTASSIUM 4.9 mmol/L (3.5-5.1); TOTAL BILIRUBIN 0.2 mg/dL (0.0-1.0)
--- NOTE | 2019-12-21 07:12 | NUR ---
ENDORSED PT TO DAY SHIFT NURSE MIGUEL RN, PT STABLE, NO DISTRESS NOTED, CALL LIGHT WITHIN REACH.
--- NOTE | 2019-12-21 07:28 | NUR ---
RECEIVED BEDSIDE REPORT FROM PM RN PT AWAKE IN BED PT A&OX1. PT APHASIC. PT TRACH TO VENT. PT HAS GTUBE IN PLACE. HEAD OF BED ELEVATED ABOVE 30 DEGREES. ALL SAFETY MEASURES ARE IN PLACE CALL LIGHT WITHIN REACH. WILL CONTINUE TO MONITOR.
[2019-12-21 08:01] VITALS: BP 114/90
[2019-12-21] MEDS: MULTIVITAMIN/MINERALS 1 TAB GT SCH (08:20)
[2019-12-21] MEDS: ASCORBIC ACID 500 MG/5 ML ORASYR GT SCH (08:21)
[2019-12-21] MEDS: LABETALOL 200 MG TAB GT SCH ×2 (08:21→20:56)
[2019-12-21] MEDS: levETIRAcetam 100 MG/ML ORASYR GT SCH ×2 (08:21→20:54)
[2019-12-21] MEDS: FAMOTIDINE 20 MG TAB GT SCH ×2 (08:22→20:57)
--- NOTE | 2019-12-21 08:45 | NUR ---
MORNING MEDICATIONS ADMINISTERED VIA GTUBE. GTUBE RESIDUAL LESS THAN 10ML GTUBE FLUSHED AND PATENT. NO TROUBLE INFUSING RT AT BEDSIDE PERFORMING BREATHING TREATMENT. HEAD OF BED ELEVATED ABOVE 30 DEGREES. ALL SAFETY MEASURES ARE IN PLACE. WILL CONTINUE TO MONITOR.
[2019-12-21] MEDS ORDERED: WATER STERILE 10 ML MC ONE (09:35)
[2019-12-21] MEDS: COLISTIMETHATE SODIUM 150 MG VIAL IH SCH ×2 (09:43→21:09)
--- NOTE | 2019-12-21 10:30 | NUR ---
PROVIDED BED BATH FOR PATIENT WITH CHG WIPES. PROVIDED ORAL CARE. ASHLEY CARE AND REPOSITIONED PT. PT TOLERATED CLEANING AND REPOSITIONING. ALL SAFETY MEASURES ARE IN PLACE WILL CONTINUE TO MONITOR. TRACH TO VENT GTUBE INFUSING HEAD OF BED ELEVATED ABOVE 30 DEGREES.
[2019-12-21] MEDS: CHLORHEXADINE GLUC 2% CLOTH TP SCH (12:04)
[2019-12-21] MEDS: MUPIROCIN CA NASAL 2% 1GM TUBE NS SCH (12:04)
[2019-12-21 12:05] VITALS: BP 131/90
--- NOTE | 2019-12-21 12:15 | NUR ---
FREQUENT ROUNDING ON PT PT APPEARS STABLE AND IN NO APPARENT DISTRESS. ALL SAFETY MEASURES ARE IN PLACE WILL CONTINUE TO MONITOR.
--- NOTE | 2019-12-21 12:18 | NUR ---
STABLE GOOD CHEST RISE ANGELINA PTARHEAL SUCTION FOR LARGE FROTHY PALE WHITE SECRETIONS AIRWAY PATENT
--- NOTE | 2019-12-21 13:19 | NUR ---
NO EVIDENCE OF PULMONARY DISTRESS NOTED GOOD CHEST RISE AND AERATION THROUGHOUT BILATERAL LUNG MALONEY AIRWAY PATENT
--- NOTE | 2019-12-21 14:50 | NUR ---
FREQUENT ROUNDING ON PT PT APPEARS STABLE AND IN NO APPARENT DISTRESS. ALL SAFETY MEASURES ARE IN PLACE. CALL LIGHT IS WITHIN REACH. WILL CONTINUE TO MONITOR.
--- NOTE | 2019-12-21 16:11 | NUR ---
NO RESPIRATORY DISTRESS NOTED EQUAL CHEST RISE DEEP TRACHEAL SUCTION FOR LARGE THIN YELLOW SECRETIONS AIRWAY PATENT
--- NOTE | 2019-12-21 16:45 | NUR ---
FREQUENT ROUNDING ON PT PT APPEARS STABLE AND IN NO APPARENT DISTRESS. ALL SAFETY MEASURES ARE IN PLACE WILL CONTINUE TO MONITOR. WILL CONTINUE TO MONITOR, ORAL CARE PROVIDED REPOSITIONED PATIENT.
[2019-12-21 16:46] VITALS: BP 117/79
--- NOTE | 2019-12-21 17:10 | NUR ---
RESTING COMFORTABLE NO SOB NOTED DEEP TRACHEAL SUCTION FOR MODERATE THIN YELLOW SECRETIONS AIRWAY PATENT
--- NOTE | 2019-12-21 18:12 | NUR ---
FREQUENT ROUNDING ON PT. ORAL SUCTIONING PROVIDED FOR ORAL SECRETIONS. ALL SAFETY MEASURES ARE IN PLACE CALL LIGHT WITHIN REACH WILL CONTINUE TO MONITOR.
--- NOTE | 2019-12-21 19:11 | NUR ---
ENDORSED PT AT BEDSIDE TO PM RN PT AWAKE IN BED. PT TRACH TO VENT. ON TELE MONITORING. CONTINOUS 02 MONITORING AT BEDSIDE. GTUBE INFUSING. HEAD OF BED ELEVATED ABOVE 30 DEGREES. CALL LIGHT WITHIN REACH. ALL SAFETY MEASURES ARE IN PLACE BED ALARM ON. IVF INFUSING AT 30ML/HR.
--- NOTE | 2019-12-21 19:11 | NUR ---
RECIEVED PT AWAKE , NON VERBAL , RESPONDING TO STIMULI BY BLINKING THE EYES . NID - ON TRACH TO VENT - [id number] 30 RATE 16 .ON O2 SAT MONITORING - 100% , NO SIGNS OF ACUTE DISTRESS NOTED AT THIS TIME , ON G TUBE FEEDING - WELL TOERATED . POC DISCUSSED BUT POOR UNDERSTANDING DUE TO MENTAL STATUS - CALL LIGHT MARIO OSMAN . ON SAFETY / FALL PRECAUTION PROTOCOL . WILL CONT. TO MONITOR.
[2019-12-21 20:00] VITALS: BP 138/93
[2019-12-21] MEDS: SENNA 8.6 MG TAB GT SCH (20:56)
--- NOTE | 2019-12-21 22:29 | NUR ---
MADE ROUNDS. NO SIGNS OF ACUTE DISTRESS NOTED AT THIS TIME . OFF LOAD PRESSURE AREAS . - ON GLOBAL PRESIDENT - BED ALARM ON - WILL CONT. TO MONITOR.
--- NOTE | 2019-12-21 23:24 | NUR ---
MADE ROUNDS , PROGRESSING EXCESSIVELY SECRETION ON THE MOUTH - CHECK THE FEEDING RESIDUE - 250CC - HOLD G TUBE FEEDING.
[2019-12-22] VITALS: BP 133/80
[2019-12-22] MEDS: LEVOFLOXACIN 750 MG/D5W PREMIX 150 ML IV SCH (00:40)
[2019-12-22] MEDS: IPRATROPIUM 0.02% 0.5 MG/2.5 ML NEBU INH SCH ×4 (01:13→19:13)
--- NOTE | 2019-12-22 01:33 | NUR ---
MADE ROUNDS , STILL W/ WATERY MUCOUS COMING OUT TO MOUTH BUT LESS IN AMOUT COMPARE IT WAS . O2 SAT 100 , PT RESTING COMFORTABLY - AUSCULTATE LUNGS - CLEAR SOUNDS.WILL CONT TO MONITOR. Addendum: 12/22/19 at 0138 by Amber Haile RN THE WORD WATERY MUCOUS COMING OUT TO MOUTH IS AN ERROR ENTRY , INSTEAD OF WATERY MUCOUS COMING OUT FROM THE MOUTH- JUDY
--- NOTE | 2019-12-22 01:35 | NUR ---
RE CHECK RESIDUE 20CC - RESUME FEEDING AT BEGINNING OF 10CC - AND WILL TITRATE ACCORDING TO RESIDUE .
--- NOTE | 2019-12-22 03:35 | NUR ---
FEEDING TOLERATED - RESIDUE 40CC.WILL CONT . TO MONITOR.
--- NOTE | 2019-12-22 03:39 | NUR ---
MADE ROUNDS , NO SIGNS OF ACUTE DISTRESS NOTED . O2 SAT WNL , OFF LOAD PRESSURE AREAS . SUCTION SECRETION .- WELL TOLERATED . WILL CONT./ TO MONITOR.
[2019-12-22 04:00] VITALS: BP 135/83
--- NOTE | 2019-12-22 06:00 | NUR ---
MADE ROUNDS , NO SIGNS OF DISTRESS NOTED .
[2019-12-22] MEDS ORDERED: WATER STERILE 10 ML MC ONE (07:23)
--- NOTE | 2019-12-22 07:26 | NUR ---
ENDORSED TO AM - PT - STABLE - O2 SAT WNL .AWAKE.
--- NOTE | 2019-12-22 07:26 | NUR ---
RECEIVED REPORT FROM ARMATURE TESTER NURSE. PATIENT LYING DOWN IN BED, RECEIVING A BREATHING TREATMENT FROM RT. NO DISTRESS NOTED. FLACC 0. RESPIRATIONS EVEN, UNLABORED, ON TRACH TO VENT. APHASIC, SKIN COLOR APPROPRIATE TO ETHNICITY, WARM TO TOUCH. SKIN INTACT. GTUBE INTACT, AND INFUSING FEEDING PER MD ORDERS. IV SITE INTACT, PATENT, AND INFUSING IVF PER MD ORDERS. REVIEWED PLAN OF CARE WITH PATIENT. UNABLE TO COMPREHEND. SAFETY MEASURES IN PLACE, CALL LIGHT WITHIN REACH. WILL CONTINUE OT MONITOR.
[2019-12-22] MEDS: COLISTIMETHATE SODIUM 150 MG VIAL IH SCH ×2 (07:40→19:14)
[2019-12-22 08:00] VITALS: BP 113/79
[2019-12-22] MEDS ORDERED: COLI150P4 IH (08:13)
[2019-12-22] MEDS ORDERED: LEVO750T51 PO (08:13)
[2019-12-22] MEDS: MULTIVITAMIN/MINERALS 1 TAB GT SCH (09:38)
[2019-12-22] MEDS: LABETALOL 200 MG TAB GT SCH ×2 (09:38→20:25)
[2019-12-22] MEDS: ASCORBIC ACID 500 MG/5 ML ORASYR GT SCH (09:39)
[2019-12-22] MEDS: levETIRAcetam 100 MG/ML ORASYR GT SCH ×2 (09:39→20:23)
[2019-12-22] MEDS: FAMOTIDINE 20 MG TAB GT SCH ×2 (09:39→20:23)
--- NOTE | 2019-12-22 09:57 | NUR ---
SCHEDULED MEDICATIONS DUE GIVEN. WILL CONTINUE TO MONITOR.
--- NOTE | 2019-12-22 11:30 | NUR ---
PERFORMED ORAL CARE. PATIENT TOLERATED WELL. WILL CONTINUE TO MONITOR.
--- NOTE | 2019-12-22 11:30 | NUR ---
12/22/19 RD FOLLOW UP COMPLETED PLEASE REFER TO NUTRITION PROGRESS NOTE UNDER CARE ACTIVITY FOR ESTIMATED NUTRITION NEEDS. RD RECOMMENDATIONS: 1. CONTINUE JEVITY 1.2 @ 65 ML/HR & 1 PACKET PROSOURCE DAILY -THIS WILL PROVIDE 1932 KCALS AND 102 GMS OF PROTEIN; SUFFICIENT TO MEET 100% OD PT'S DAILY ESTIMATED NUTRITIONAL NEEDS. 2. CONTINUE FREE WATER FLUSH OF [address] TO FOLLOW-UP 2-3 DAYS, HIGH RISK [place] MAK MBA, RD
--- NOTE | 2019-12-22 11:51 | NUR ---
CONTACTED JAQUELINE AT [facility], NO ISOLATION ROOM AVAILABLE FOR PT. AL MADE AWARE.
[2019-12-22 12:00] VITALS: BP 129/85
[2019-12-22] MEDS: MUPIROCIN CA NASAL 2% 1GM TUBE NS SCH (12:32)
[2019-12-22] MEDS: CHLORHEXADINE GLUC 2% CLOTH TP SCH (12:33)
[2019-12-22] MEDS: NACL 0.9% 1,000 ML IV SCH ×2 (12:42→20:41)
--- NOTE | 2019-12-22 13:00 | NUR ---
ASSISTED TELEVISION REPAIRER IN CLEANING AND REPOSITIONING PATIENT. WILL CONTINUE TO MONITOR.
[2019-12-22 16:00] VITALS: BP 152/85
--- NOTE | 2019-12-22 16:30 | NUR ---
ASSISTED CARDIAC EXERCISE PHYSIOLOGIST IN CLEANING AND REPOSITIONING PATIENT. CONDITION UNCHANGED. WILL CONTINUE TO MONITOR.
[2019-12-22] MEDS ORDERED: COLISTIMETHATE SODIUM 150 MG VIAL ONE (18:44)
--- NOTE | 2019-12-22 19:20 | NUR ---
GAVE REPORT TO SENIOR PROJECT MANAGER NURSE FOR CONTINUITY OF CARE. PATIENT IN STABLE CONDITION.
--- NOTE | 2019-12-22 19:20 | NUR ---
RECIEVED PT AWAKE , RESPONDING TO TOUCH , ON TRACH TO VENT , O2 SAT WNL , ON G TUBE FEEDING - TOLERATED . IV SITE INTACT AND PATENT . INCONTINENT - ON DIAPER . POC DISCUSSED BUT POOR UNDERSTANDING DUE TO MENTAL STATUS . ON SAFETY / FALL PRECAUTION PROTOCOL - BED ALARM ON . ON ASSISTANT TEACHING PROFESSOR . LOW LORETTA SCALE . WILL CONT. TO MONITOR .
--- NOTE | 2019-12-22 19:29 | NUR ---
RECEIVED PT FROM DAY ON AC 16,400,+5,30%. VENT PLUGGED INTO RED OUTLET. BMV HANGED ONTO VENTILATOR. TRACH IS SECURED WITH A TRACH TIE. PT REMAINS QUIET. WILL CONT TO MONITOR
[2019-12-22 20:00] VITALS: BP 113/83
[2019-12-22] MEDS: SENNA 8.6 MG TAB GT SCH (20:24)
--- NOTE | 2019-12-22 22:00 | NUR ---
MADE ROUNDS . NO S/S OF ACUTE DISTRESS NOTED AT THIS TIME , O2 SAT WNL .- ON CONFIGURATION MANAGEMENT ARCHITECT. ,WILL CONT. TO MONITOR.
--- NOTE | 2019-12-23 | NUR ---
MADE ROUNDS . NO S/S OF ACUTE DISTRESS NOTED AT THIS TIME - O2 SAT WNL. OFF LOAD PRESSURE AREAS . DIAPER FULLY SOAKED .WILL CONT. TO MONITOR.
[2019-12-23] MEDS: LEVOFLOXACIN 750 MG/D5W PREMIX 150 ML IV SCH (00:21)
[2019-12-23] MEDS: IPRATROPIUM 0.02% 0.5 MG/2.5 ML NEBU INH SCH ×4 (01:38→19:07)
--- NOTE | 2019-12-23 02:00 | NUR ---
SLEEPING - RESP EVEN AND EQUAL - TRACH INTACT IN PLACE - O2 SAT 99% - ON FASHION MERCHANDISER . WILL CONT. TO MONITOR.
[2019-12-23 02:26] VITALS: BP 112/75
--- NOTE | 2019-12-23 04:00 | NUR ---
ASSISTING CHIEF BUSINESS DEVELOPMENT OFFICER - MORNING CARE - FULLY SOAKED DIAPER . NO SIGN OF ACUTE DISTRESS NOTED AT THIS TIME . WILL CONT. TO MONITOR . O2 SAT WNL.
--- NOTE | 2019-12-23 05:10 | NUR ---
PT REMAINS ON DOCUMENTED SETTING. VENT PLUGGED INTO RED OUTLET. BMV HANGED ONTO THE VENT. ALARMS AUDIBLE AND WORKING. TRACH IS SECURED AND INTACT.
[2019-12-23] MEDS: COLISTIMETHATE SODIUM 150 MG VIAL IH SCH ×2 (07:00→19:07)
--- NOTE | 2019-12-23 07:12 | NUR ---
ENDORSED TO AM SHIFT AWAKE - STABLE - O2 SAT 98%
--- NOTE | 2019-12-23 07:14 | NUR ---
RECEIVED BEDSIDE REPORT FROM SKIVER HAND NURSE FOR CONTINUITY OF CARE. PT IS RESTING ON BED AT THIS TIME AND AROUSABLE TO VOICE. PT IS VENTILATED AND APHASIC. RESPIRATION EVEN AND UNLABORED ON TRACH TO VENT, VENT SETTING AT FIO2 30%, VT 400 ML, RATE 16, FLOW 30, PEEP 5, PMAX 45, SPO2 AT 100%. FLACC 0. NO SIGNS OF DISTRESS NOTED. IV ON L HAND#22G, CLEAN AND INTACT, INFUSING PER MD ORDER. SKIN CLEAN AND DRY. PT IS INCONTINENT AND BEDREST. TELE MONITOR ATTACHED. SAFETY MEASURES IN PLACE. BED IN LOW POSITION AND CALL LIGHT WITHIN REACH. BED ALARM ACTIVATED.
--- NOTE | 2019-12-23 07:18 | NUR ---
REC'D PT ON CARESCAPE VENT SETTINGS AC16 VT400 PEEP 5 FIO2 30% ALARMS ON AND AUDIBLE AND AMBU BAG AT SIDE OF VENT AND VENT IS PLUGGED INTO RED OUTLET, I\E TX GIVEN WITH ATROVENT 0.5MG WITH NO ADVERSE REACTION POST TX B\S ARE RHONCHI BILATERALLY, SXN PT MODERATE AMT OF THICK WHITE SECRETIONS, PT IS TRACH WITH PORTEX 7 AND PT IS RESTING
[2019-12-23 07:55] LABS: BASOPHILS # (AUTO) 0.2 K/uL (0.00-0.22); BASOPHILS % (AUTO) 1.3 % (0.0-2.0); EOSINOPHILS # (AUTO) 0.4 K/uL (0-0.4); EOSINOPHILS % (AUTO) 3.1 % (0.0-4.0); HEMATOCRIT 26.5 % (36-48); LYMPHOCYTES # (AUTO) 1.8 K/uL (2.5-16.5); MEAN CORPUSCULAR HEMOGLOBIN 30 pg (27-31); MEAN CORPUSCULAR HGB CONC 34 g/dL (33-37); MEAN CORPUSCULAR VOLUME 87.5 fL (80-94); MONOCYTES # (AUTO) 0.9 K/uL (0.8-1.0); MONOCYTES % (AUTO) 7.2 % (1.7-9.3); NEUTROPHILS % (AUTO) 73.9 % (42.2-75.2); PLATELET COUNT (AUTO) 445 K/uL (140-450); RED BLOOD CELL COUNT(AUTO) 3.02 MIL/uL (4.20-5.40); RED CELL DISTRIBUTION WIDTH 15.5 % (11.6-13.7); WHITE BLOOD COUNT (AUTO) 12.2 K/uL (4.8-10.8)
[2019-12-23 08:03] LABS: ALBUMIN 2.9 g/dL (3.4-5.0); ANION GAP 12.3 (8-16); CARBON DIOXIDE 28.6 mmol/L (21-32); CREATININE 0.7 mg/dL (0.6-1.3); POTASSIUM 4.9 mmol/L (3.5-5.1); TOTAL BILIRUBIN 0.2 mg/dL (0.0-1.0)
[2019-12-23 08:26] VITALS: BP 121/82
[2019-12-23] MEDS: levETIRAcetam 100 MG/ML ORASYR GT SCH ×2 (09:43→21:21)
[2019-12-23] MEDS: MULTIVITAMIN/MINERALS 1 TAB GT SCH (09:44)
[2019-12-23] MEDS: LABETALOL 200 MG TAB GT SCH ×2 (09:44→21:22)
[2019-12-23] MEDS: ASCORBIC ACID 500 MG/5 ML ORASYR GT SCH (09:44)
--- NOTE | 2019-12-23 09:44 | NUR ---
CHECKED BP PRIOR TO MED ADMINISTRATION. BP 128/56 PULSE 86. CHECKED G-TUBE RESIDUAL RECEIVED LESS THAN 5ML. FLUSHED BEFORE AND AFTER MED ADMINISTRATION. MED EDUCATION PROVIDED TO PATIENT AND REINFORCED NEEDED. PROVIDED ORAL HYGIENE AND SUCTIONED PATIENT TWO TIMES. PATIENT TOLERATED WELL. PT AWAKE AND RESTING ON BED. RESPIRATION EVEN AND UNLABORED ON TRACH TO VENT SPO2 100%. NO SIGNS OF DISTRESS NOTED. TELE MONITOR ATTACHED. SAFETY MEASURES IN PLACE. BED ALARM ACTIVATED.
[2019-12-23] MEDS: FAMOTIDINE 20 MG TAB GT SCH ×2 (09:45→21:22)
[2019-12-23 09:59] LABS: LYMPHOCYTES % (AUTO) 14.5 % (20.5-51.1)
--- NOTE | 2019-12-23 10:35 | NUR ---
CALLED [facility] AND SPOKE WITH BEN FOR PT'S VACCINATION. PER BEN, PT'S FILE HAS BEEN CLOSED SINCE SHE ADMITTED TO THE HOSPITAL. SHE IS NOT ABLE TO VIEW, BUT MOST OF THE PTS STAY IN HER FACILITY FOR CONSTRUCTION SPECIALIST ARE UP TO DATE WITH FLU VACCINE.
--- NOTE | 2019-12-23 11:21 | NUR ---
CHECKED ON PATIENT. SHE IS AWAKE AND RESTING IN BED. PT IS APHASIC. NO SIGNS OF DISTRESS NOTED. TELE MONITOR IN PLACE. SAFETY MEASURES IN PLACE.
[2019-12-23 11:45] VITALS: BP 111/79
[2019-12-23] MEDS: CHLORHEXADINE GLUC 2% CLOTH TP SCH (12:04)
[2019-12-23] MEDS: MUPIROCIN CA NASAL 2% 1GM TUBE NS SCH (12:04)
--- NOTE | 2019-12-23 12:05 | NUR ---
ADMINISTERED BACTROBAN AND CHG BATH PER MD ORDER FOR MRSA IN NARES CONTACT ISOLATION. MEDICATION EDUCATION PROVIDED AND REINFORCEMENT NEEDED. PT AWAKE RESTING IN BED WITH EYES OPENED. FLACC 0 RESPIRATION EVEN AND UNLABORED. SPO2 100%. PREOXYGENATED PT AND SUCTIONED TWICE. RECEIVED MINIMUM WHITE MUCUS. PT TOLERATED WELL. NO SIGNS OF DISTRESS NOTES. TELE MONITOR ATTACHED SAFETY MEASURES IN PLACE. BED ALARM ACTIVATED.
--- NOTE | 2019-12-23 13:24 | NUR ---
HOURLY ROUNDING. PATIENT IS LAYING IN BED AWAKE RECEIVING A BREATHING TREATMENT. PT IS APHASIC. NO SIGNS OF DISTRESS NOTED. TELE MONITOR IN PLACE. SAFETY MEASURES IN PLACE PER PROTOCOL. BED ALARM ACTIVE. .
--- NOTE | 2019-12-23 15:19 | NUR ---
HOURLY ROUNDING. PATIENT IS LAYING IN BED AWAKE PT IS APHASIC. NO SIGNS OF DISTRESS NOTED. TELE MONITOR IN PLACE. SAFETY MEASURES IN PLACE PER PROTOCOL. BED ALARM ACTIVE.
[2019-12-23 16:00] VITALS: BP 122/77
--- NOTE | 2019-12-23 16:30 | NUR ---
[facility]ED A [facility] B[facility] RESIDUAL RECEIVED LESS THAN 5 ML. RUNNING PER MD ORDER 65ML HR.
--- NOTE | 2019-12-23 17:29 | NUR ---
PT ROUNDING. PATIENT IS AWAKE IN BED NO SIGNS OF DISTRESS NOTED. PT IS APHASIC. TELE MONITOR IN PLACE. SAFETY MEASURES IN PLACE. BED ALARM ACTIVE. WILL CONTINUE TO MONITOR
--- NOTE | 2019-12-23 17:32 | NUR ---
PT ROUNDING. PATIENT IN BED WATCHING TV. NO SIGNS OF DISTRESS NOTED. PT DENIES PAIN AND RESPIRATIONS ARE EVEN AND UNLABORED. SAFETY MEASURES IN PLACE. CALL-IN WITHIN REACH. INSTRUCTED PT TO USE CALL LIGHT IF HE REQUIRES ASSISTANCE. WILL CONTINUE TO MONITOR
--- NOTE | 2019-12-23 19:30 | NUR ---
RECEIVED PATIENT TRACH TO MECHANICAL VENTILATOR AT DOCUMENTED SETTINGS. VENT PLUGGED INTO RED OUTLET WITH WHEELS LOCKED. VENT ALARMS ON AND AUDIBLE. AMBU BAG AT BEDSIDE. SCHEDULED BREATHING TREATMENT ADMINISTERED. TOLERATED TX WELL WITHOUT ADVERSE SIDE EFFECTS. ORAL VAP CARE DONE. AIRWAY SECURE AND PATENT. SUCTIONED MODERATE AMOUNT OF THICK, WHITE SECRETIONS. NO ACUTE RESPIRATORY DISTRESS NOTED AT THIS TIME. WILL CONTINUE TO MONITOR.
[2019-12-23 20:00] VITALS: BP 132/87
--- NOTE | 2019-12-23 20:10 | NUR ---
RECEIVED REPORT FROM CHARGE NURSE. PATIENT HAS EYES OPEN IN BED, DOES NOT TRACK, AND NONVERBAL. CANNOT FOLLOW COMMANDS OR MAKE NEEDS KNOWN. TRACH TO VENT, ACVC 16, FI02 30%, TV 400, PEEP 5. CONNECTED TO MONITOR, SATURATIONS 100%, BREATHING IS EVEN AND UNLABORED. LUNG SOUNDS CLEAR, SMALL COUGH NOTED, INTERMITTENT. PRODUCTIVE WITH WHITE CREAMY SECRETIONS-SMALL. S1S2, HR SR, 80 BPM. LEFT HAND 22 G, FLUSHED, PATENT WITHOUT SYMPTOMS, INFUSING NS @ 30ML/HR. GTUBE IN PLACE WITH TUBE FEEDING JEVITY 1.2 @ 65 ML/HR. ABDOMEN LARGE, SOFT AND NONTENDER WITH ACTIVE BOWEL SOUNDS. SKIN IS WARM AND DRY, INTACT. INCONTINENT, IVORY PADS IN PLACE. HEEL PROTECTORS IN PLACE. HOB 30 DEGREES, BED IS LOCKED AND IN LOWEST POSITION, SIDERAILS UP x3, SEIZURE AND FALL PRECAUTIONS IN PLACE. WILL CONTINUE TO MONITOR.
--- NOTE | 2019-12-23 21:20 | NUR ---
TURNED TUBE FEEDING OFF TEMPORARILY, CHECKED GASTRIC RESIDUALS, LESS THAN 10ML. ADMINISTERED SCHEDULED MEDICATIONS. PATIENT TOLERATED WELL. RESUMED TUBE FEEDING. FLACC 0, ALL NEEDS MET AT THIS TIME.
[2019-12-23] MEDS: SENNA 8.6 MG TAB GT SCH (21:22)
--- NOTE | 2019-12-23 21:40 | NUR ---
IN TO ASSESS PATIENT, NO NEW ORDERS AT THIS TIME.
--- NOTE | 2019-12-23 22:05 | NUR ---
PATIENT HAD A SMALL BOWEL MOVEMENT, SOFT, BROWN, AND SMALL IN SIZE. PATIENT ALSO VOIDED, AND SOILED ONE FULL IVORY PAD. PROVIDED PERINEAL AND SKIN CARE. SKIN INTACT, NO REDNESS OR PRESSURE INJURIES NOTED. REPLACED IVORY PADS. TURNED AND REPOSITIONED, HOB 30 DEGREES, BED LOCKED AND IN LOWEST POSITION, SIDERAILS UP x3. WILL CONTINUE TO MONITOR.
[2019-12-24] VITALS: BP 112/75
[2019-12-24] MEDS: LEVOFLOXACIN 750 MG/D5W PREMIX 150 ML IV SCH (00:47)
--- NOTE | 2019-12-24 01:05 | NUR ---
VAP ORAL CARE PROVIDED, PATIENT TOLERATED WELL. SMALL AMOUNT OF SECRETIONS SUCTIONED ORALLY, AND MODERATE AMOUNT OF WHITE CREAMY SECRETIONS IN TRACH. VENT SETTINGS CONTINUED SET START OF SHIFT, BREATHING IS EVEN AND UNLABORED, FLACC 0. TURNED AND REPOSITIONED PATIENT, OFFLOADED PRESSURE AREAS. HEEL PROTECTORS IN PLACE .
--- NOTE | 2019-12-24 01:30 | NUR ---
LEVOFLOXICIN ANTIBIOTIC-1 BAG WASTED. CHARGE NURSE AWARE, ANTIBIOTIC BAG WAS STUCK TO PACKAGING AND WHEN OPENED THE ANTIBIOTIC BAG WAS PUNCTURED AND LEAKING. WILL HANG ANOTHER BAG AND DISCARD/WASTE PUNCTURED BAG.
[2019-12-24] MEDS: IPRATROPIUM 0.02% 0.5 MG/2.5 ML NEBU INH SCH ×4 (01:44→19:05)
--- NOTE | 2019-12-24 01:57 | NUR ---
SCHEDULED BREATHING TREATMENT ADMINISTERED. TOLERATED TX WELL WITHOUT ADVERSE SIDE EFFECTS. SUCTIONED MODERATE AMOUNT OF THICK, WHITE SECRETIONS. NO ACUTE RESPIRATORY DISTRESS NOTED AT THIS TIME. WILL CONTINUE TO MONITOR.
--- NOTE | 2019-12-24 03:13 | NUR ---
VENT ALARM GOING OFF, PATIENT HAS SMALL INTERMITTENT COUGH, SUCTIONED, APPLIED 100% OXYGEN. WHITE CREAMY SECRETIONS NOTED. SATURATION 100%. RT AT BEDSIDE.
[2019-12-24 04:00] VITALS: BP 108/71
--- NOTE | 2019-12-24 05:05 | NUR ---
PROVIDED SPONGE BATH, SKIN CARE, PERICARE. PATIENT VOIDED AND SOILED ONE FULL IVORY PAD. NO BOWEL MOVEMENT. PATIENT NEEDS TOTAL CARE, 2 PERSON ASSISTANCE. SKIN IS INTACT. REPLACED GOWN AND LINEN. SKIN IS SLIGHT DIAPHORETIC, TEMP IS 98.7. REPOSITIONED PATIENT AND CHECKED GASTRIC RESIDUALS, LESS THAN 10 ML. TOLERATING WELL. IV FLUIDS INFUSING AT LEFT AC 22G, SITE IS DRY AND INTACT, SITE IS FLUSHED AND PATENT. TRACH TO VENT ACVC 16, FI02 28%, TV 400, PEEP 5. SIDERAILS UPx2, HOB 30 DEGREES.
[2019-12-24 06:26] LABS: BASOPHILS # (AUTO) 0.1 K/uL (0.00-0.22); BASOPHILS % (AUTO) 0.6 % (0.0-2.0); EOSINOPHILS # (AUTO) 0.4 K/uL (0-0.4); EOSINOPHILS % (AUTO) 3.1 % (0.0-4.0); HEMATOCRIT 25.9 % (36-48); HEMOGLOBIN 8.7 g/dL (12.0-16.0); LYMPHOCYTES # (AUTO) 1.5 K/uL (2.5-16.5); LYMPHOCYTES % (AUTO) 12.5 % (20.5-51.1); MEAN CORPUSCULAR HEMOGLOBIN 30 pg (27-31); MEAN CORPUSCULAR HGB CONC 34 g/dL (33-37); MEAN CORPUSCULAR VOLUME 87.5 fL (80-94); MONOCYTES % (AUTO) 8.3 % (1.7-9.3); NEUTROPHILS % (AUTO) 75.5 % (42.2-75.2); PLATELET COUNT (AUTO) 465 K/uL (140-450); RED BLOOD CELL COUNT(AUTO) 2.96 MIL/uL (4.20-5.40); RED CELL DISTRIBUTION WIDTH 15.9 % (11.6-13.7)
[2019-12-24 06:58] LABS: ALBUMIN 2.8 g/dL (3.4-5.0); ANION GAP 13.4 (8-16); CARBON DIOXIDE 27.1 mmol/L (21-32); CREATININE 0.7 mg/dL (0.6-1.3); POTASSIUM 4.5 mmol/L (3.5-5.1); TOTAL BILIRUBIN 0.3 mg/dL (0.0-1.0)
--- NOTE | 2019-12-24 07:07 | NUR ---
RECEIVED BEDSIDE REPORT FROM CIGARETTE PAPER TESTER NURSE FOR CONTINUITY OF CARE. PT IS RESTING ON BED AT THIS TIME AND AROUSABLE TO VOICE. PT IS VENTILATED AND APHASIC. RESPIRATION EVEN AND UNLABORED ON TRACH TO VENT, VENT SETTING AT FIO2 28%, VT 400 ML, RATE 16, FLOW 30, PEEP 5, PMAX 50, SPO2 AT 100%. FLACC 0. NO SIGNS OF DISTRESS NOTED. IV ON L HAND#22G, CLEAN AND INTACT, INFUSING PER MD ORDER. SKIN CLEAN AND DRY. PT IS INCONTINENT AND BEDBOUND. TELE MONITOR ATTACHED. SAFETY MEASURES IN PLACE. BED IN LOW POSITION AND CALL LIGHT WITHIN REACH. BED ALARM ACTIVATED.
[2019-12-24] MEDS ORDERED: WATER STERILE 10 ML MC ONE (07:24)
[2019-12-24] MEDS: COLISTIMETHATE SODIUM 150 MG VIAL IH SCH ×2 (07:49→19:05)
[2019-12-24 08:33] VITALS: BP 147/77
[2019-12-24] MEDS: levETIRAcetam 100 MG/ML ORASYR GT SCH ×2 (09:49→21:17)
[2019-12-24] MEDS: ASCORBIC ACID 500 MG/5 ML ORASYR GT SCH (09:49)
[2019-12-24] MEDS: MULTIVITAMIN/MINERALS 1 TAB GT SCH (09:50)
[2019-12-24] MEDS: LABETALOL 200 MG TAB GT SCH ×2 (09:50→21:19)
[2019-12-24] MEDS: FAMOTIDINE 20 MG TAB GT SCH ×2 (09:50→21:16)
--- NOTE | 2019-12-24 09:50 | NUR ---
CHECKED RESIDUAL RECEIVED 5 ML OF RESIDUAL. ADMINISTERED MEDICATIONS PER MD ORDER. FLUSH BEFORE AND AFTER MED ADMINISTRATION. MED EDUCATION PROVIDED TO PATIENT. REINFORCEMENT NEEDED. PROVIDED MORNING ORAL HYGEINE TO PATIENT. PATIENT TOLERATED WELL. PATIENT AWAKE AND RESTING IN BED. NO SIGNS OF DISTRESS NOTED. TELE MONITOR ATTACHED. SAFETY MEASURES IN PLACE. BED ALARM ACTIVATED.
--- NOTE | 2019-12-24 11:12 | NUR ---
PT IS RESTING ON BED, FLACC 0, RESPIRATION EVEN AND UNLABORED ON TRACH TO VENT, SPO2 AT 100%. NO SIGNS OF DISTRESS NOTED. TELE MONITOR ATTACHED. SAFETY MEASURES IN PLACE. BED ALARM ACTIVATED.
--- NOTE | 2019-12-24 11:47 | NUR ---
Late entry. Confirmed with RN that 0.9 NS IV completed at 1700. Zosyn IV completed at 1700
[2019-12-24 11:59] VITALS: BP 107/72
[2019-12-24] MEDS: MUPIROCIN CA NASAL 2% 1GM TUBE NS SCH (12:11)
[2019-12-24] MEDS: CHLORHEXADINE GLUC 2% CLOTH TP SCH (12:12)
--- NOTE | 2019-12-24 12:12 | NUR ---
ADMINISTERED BACTROBAN AND PERFORMED CHG BATH. G TUBE FEEDING BOTTLE REPLACED. PROVIDED PT EDUCATION ON MEDICATION PURPOSES AND SIDE EFFECTS, REINFORCEMENT REQUIRED. PT TOLERATED WELL, TELE MONITOR IN PLACE. SAFETY MEASURES IN PLACE. BED IN LOW POSITION WITH BED ALARM ARMED. PATIENT REPOSITIONED FOR COMFORT.
[2019-12-24] MEDS: NACL 0.9% 1,000 ML IV SCH (13:05)
--- NOTE | 2019-12-24 13:46 | NUR ---
HOURLY ROUNDING. PT IS AWAKE IN BED. NO SIGNS OF DISTRESS NOTED. TELE MONITOR ATTACHED. SAFETY MEASURES IN PLACE. BED ALARM ACTIVE.
--- NOTE | 2019-12-24 15:16 | NUR ---
HOURLY ROUNDING. PATIENT IS RESTING IN BED. NO SIGNS OF DISTRESS NOTED. TELE MONITOR ATTACHED. SAFETY MEASURES IN PLACE. BED ALARM ACTIVE. WILL CONTINUE TO MONITOR
[2019-12-24 16:00] VITALS: BP 109/67
--- NOTE | 2019-12-24 16:00 | NUR ---
RECEIVED A CALL FROM PT'S MOTHER SARBJIT DOUGLAS. UPDATED SARBJIT WITH PT'S CURRENT CONDITION. I INQUIRED ABOUT PT'S VACCINATION STATUS. PER SARBJIT, [facility] HAS GIVEN ALL VACCINATION AND PT IS UP TO DATE WITH VACCINATION. EXPLAINED TO SARBJIT THAT WE ARE WAITING FOR ISO ROOM AVAILABLE TO TRANSFER, AND HOSPITAL WILL GIVE HER A CALL ONCE PT IS READY TO TRANSFER. SARBJIT WAS AWARE AND STATED " I WILL VISIT HER THIS TUESDAY SINCE I AM LIVING IN [facility]." CONFIRMED PHONE # WITH SARBJIT [phone].
--- NOTE | 2019-12-24 17:15 | NUR ---
ASSISTED CYBER SECURITY CONSULTANT WITH POSITION CHANGE AND CLEANING BM. PT TOLERATED WELL. NO SIGNS OF DISTRESS NOTED. PT HAD ONE SMALL BM AND VOID. TELE MONITOR IN PLACE. BED IN LOW POSITION AND BED ALARM ARMED. WILL CONTINUE TO MONITOR.
--- NOTE | 2019-12-24 19:10 | NUR ---
ENDORSED PT AT BEDSIDE TO TUBER MACHINE OPERATOR HELPER NURSE FOR CONTINUITY OF CARE. PT IS RESTING IN BED. RESPIRATIONS EVEN AND UNLABORED. NO SIGNS OF DISTRESS NOTED. TELE MONITOR ATTACHED. PT IS IN STABLE CONDITION. SAFETY MEASURES IN PLACE. BED ALARM ACTIVATED
--- NOTE | 2019-12-24 19:40 | NUR ---
RECEIVED PT FROM DAY SHIFT, AWAKE WITH TRACH TO VENT,RESP EVEN AND EASY ,NO DISTRESS NOTED ,BED BOUND, TOTAL CARE NONVERBAL ,IV ACCESS ON LFA #22, INTACT AND PATENT ,GT IN PLACE ,SKIN INTACT ,HEEL PROTECTOR ON BOTH HEELS REPOSITIONED FOR COMFORT, CONTINUE TO MONITOR.
[2019-12-24 20:00] VITALS: BP 109/66
--- NOTE | 2019-12-24 21:00 | NUR ---
PM MEDS GIVEN VIA GT,NO RESIDUAL NOTED , NO RESP DISTRESS SEEN
[2019-12-24] MEDS: SENNA 8.6 MG TAB GT SCH (21:16)
--- NOTE | 2019-12-25 | NUR ---
PT SLEEPING ,NO SIGN OF DISCOMFORT SEEN ,REPOSITIONED FOR COMFORT,CONTINUE TO MONITOR
[2019-12-25 00:02] VITALS: BP 104/68
[2019-12-25] MEDS: LEVOFLOXACIN 750 MG/D5W PREMIX 150 ML IV SCH (01:21)
[2019-12-25] MEDS: IPRATROPIUM 0.02% 0.5 MG/2.5 ML NEBU INH SCH ×3 (01:22→13:16)
[2019-12-25 04:00] VITALS: BP 96/73
--- NOTE | 2019-12-25 04:00 | NUR ---
AM CARE GIVEN , VITAL SIGN WNL, NO RESP DISTRESS NOTED, REPOSITIONED FOR COMFORT
--- NOTE | 2019-12-25 06:32 | NUR ---
WILL ENDORSE TO DAY SHIFT FOR CONTINUITY OF CARE.
[2019-12-25 06:42] LABS: ALBUMIN 2.9 g/dL (3.4-5.0); ANION GAP 12.1 (8-16); CARBON DIOXIDE 28.1 mmol/L (21-32); CREATININE 0.7 mg/dL (0.6-1.3); POTASSIUM 4.2 mmol/L (3.5-5.1); TOTAL BILIRUBIN 0.2 mg/dL (0.0-1.0)
--- NOTE | 2019-12-25 06:47 | NUR ---
REC'D PT ON CARESCAPE VENT SETTINGS AC 16 VT 400 PEEP 5 FIO2 28% ALARMS ON AND AUDIBLE AND AMBU BAG AT SIDE OF VENT AND VENT IS PLUGGED INTO RED OUTLET, I\L TX GIVEN WITH ATROVENT 0.MG AND COLY-MYCIN 75 MG 1ML WITH 2ML OF NORMAL SALINE WITH NO ADVERSE REACTION POST TX B]S ARE CLEAR BILATERALLY SXN PT SMALL AMT OF YELLOW SECRETIONS, PT IS TRACH WITH PORTEX 7 AND PT IS RESTING
[2019-12-25] MEDS ORDERED: WATER STERILE 10 ML MC ONE (06:54)
[2019-12-25] MEDS: COLISTIMETHATE SODIUM 150 MG VIAL IH SCH (06:59)
--- NOTE | 2019-12-25 07:30 | NUR ---
RECEIVED PT FROM PM SHIFT RN. PT OPENS EYES, UNABLE TO FOLLOW COMMANDS. BEDSIDE MONITOR SHOWS O2 SATS 100%. HR 80.TRACH TO VENT WITH SETTING FIO2=28%, VT= 400, AC 16 AND PEEP 5. NO S/S OF RESPIRATORY DISTRESS NOTED. LUNG SOUND CLEAR.PT HAS IV TO LEFT WRIST # 22 RUNNING NS AT 30 CC/HR. PT HAS G-TUBE IN PLACE RUNNING JEVITY 1.2 AT 65 CC/HR. RESIDUAL CHECKED ABOUT 10 CC, RETURNED IT BACK. ABD SOFT. NON TENDER UPON PALPITATION. HOB ELEVATED 30 DEGREES WITH LOW BED POSITION, WILL CONTINUE TO MONITOR.
[2019-12-25 08:00] VITALS: BP 108/72
[2019-12-25] MEDS: ASCORBIC ACID 500 MG/5 ML ORASYR GT SCH (08:15)
[2019-12-25] MEDS: levETIRAcetam 100 MG/ML ORASYR GT SCH (08:15)
[2019-12-25] MEDS: MULTIVITAMIN/MINERALS 1 TAB GT SCH (08:16)
[2019-12-25] MEDS: FAMOTIDINE 20 MG TAB GT SCH (08:17)
[2019-12-25] MEDS: LABETALOL 200 MG TAB GT SCH (08:17)
[2019-12-25 08:43] LABS: BASOPHILS # (AUTO) 0.1 K/uL (0.00-0.22); BASOPHILS % (AUTO) 0.7 % (0.0-2.0); EOSINOPHILS # (AUTO) 0.4 K/uL (0-0.4); EOSINOPHILS % (AUTO) 3.2 % (0.0-4.0); HEMATOCRIT 25.6 % (36-48); HEMOGLOBIN 8.7 g/dL (12.0-16.0); LYMPHOCYTES # (AUTO) 1.5 K/uL (2.5-16.5); LYMPHOCYTES % (AUTO) 11.3 % (20.5-51.1); MEAN CORPUSCULAR HEMOGLOBIN 30 pg (27-31); MEAN CORPUSCULAR HGB CONC 34 g/dL (33-37); MEAN CORPUSCULAR VOLUME 87.4 fL (80-94); MONOCYTES # (AUTO) 0.9 K/uL (0.8-1.0); MONOCYTES % (AUTO) 7.1 % (1.7-9.3); NEUTROPHILS # (AUTO) 10.1 K/uL (1.8-7.7); NEUTROPHILS % (AUTO) 77.7 % (42.2-75.2); PLATELET COUNT (AUTO) 481 K/uL (140-450); RED BLOOD CELL COUNT(AUTO) 2.92 MIL/uL (4.20-5.40)
--- NOTE | 2019-12-25 09:00 | NUR ---
DUE MEDS GIVEN. PT TOLERATED WELL.
--- NOTE | 2019-12-25 11:43 | NUR ---
CALLED [facility] [phone], REPORT GIVEN TO HANNA. NOTIFIED PT WILL BE PICKED UP AT 2PM. AND GO TO ISOLATION ROOM 27B
[2019-12-25 11:47] VITALS: BP 107/76
--- NOTE | 2019-12-25 11:50 | NUR ---
CALLED PT'S MOTHER HOME PHONE AND WORK PHONE WITHOUT ANSWER, WILL F/U.
--- NOTE | 2019-12-25 12:46 | NUR ---
CLEANED PT, WHOLE BED CHANGED FOR TRANSFERRING. TUBE FEEDING HOLD, TUNING FLUSHED WITH FREE WATER. Addendum: 12/25/19 at 1428 by Wilmar Villela RN PT HAD ONE TIME BM.
--- NOTE | 2019-12-25 13:53 | NUR ---
CALLED PT'S HOME PHONE AGAIN, NO ANSWER. VOICE MESSAGE LEFT. NOTIFIED PT WILL BE TRANSFERRED TO [facility] AT 1400.
--- NOTE | 2019-12-25 14:05 | NUR ---
TRANSPORTATION TEAM IN UNIT. REPORT GIVEN.
--- NOTE | 2019-12-25 14:10 | NUR ---
PT LEFT UNIT IN STABLE VITALS.
== END 2019-12-25 14:24 | DRG 720 ==
LOC: MED 12:07 → MTU 15:37
PROVIDERS: ADMIT Hospitalist; ATTEND Hospitalist
PROC: 5A1955Z Respiratory Ventilation, Greater than 96 Consecutive Hours (ICD-10-PCS; principal; 2019-12-19)
PROC: 30233N1 Transfusion of Nonautologous Red Blood Cells into Peripheral Vein, Percutaneous Approach (ICD-10-PCS; 2019-12-20)
DX: A41.9 Sepsis, unspecified organism (principal); G93.1 Anoxic brain damage, not elsewhere classified; J18.9 Pneumonia, unspecified organism; R53.2 Functional quadriplegia; Z93.0 Tracheostomy status; I50.9 Heart failure, unspecified; L73.2 Hidradenitis suppurativa; Z68.30 Body mass index [BMI] 30.0-30.9, adult; E66.01 Morbid (severe) obesity due to excess calories; D64.9 Anemia, unspecified; L02.91 Cutaneous abscess, unspecified; D50.9 Iron deficiency anemia, unspecified; Z74.01 Bed confinement status; L03.112 Cellulitis of left axilla; L03.111 Cellulitis of right axilla; G81.90 Hemiplegia, unspecified affecting unspecified side; Z87.820 Personal history of traumatic brain injury
CPT/HCPCS: 36415; 71045; 80053; 81003; 83036; 83540; 83605; 85025; 85610; 85730; 86886; 86900; 86901; 86920; 87040; 87070; 87081; 87086; 87186; 87205; 87804; 89220; 94002; 94003; 94640; 99285; J0770; J1956; J2060; J2270; J2543; J3370; J7030; J7060; J7613; J7644; P9016; Q0092